=== PATIENT | female | born 1970 ===

== ENCOUNTER 2024-12-29 06:00 | Day surgery (SDC) | payer OTHER ==
[2024-12-24 13:51] VITALS: BP 123/73
[~2024-12-29] VITALS: Ht 162.6 cm; Wt 55.3 kg
[2024-12-29] MEDS ORDERED: DIBUCAINE 30 GM TUBE RECTAL SCH (08:00)
[2024-12-29] MEDS ORDERED: CEFTRIAXONE SODIUM 2,000 MG VIAL IV SCH (08:00)
[2024-12-29] MEDS ORDERED: LIDOCAINE HCL 1%/EPINEPHRINE 10 ML VIAL IJ SCH (08:00)
[2024-12-29] MEDS ORDERED: BUPIVACAINE HCL/PF 0.25% 30ML VIAL InF SCH (08:00)
[2024-12-29] MEDS ORDERED: HEMOSTATIC MATRIX 1 KIT KIT TOP SCH (08:00)
[2024-12-29] MEDS ORDERED: METRONIDAZOLE/SODIUM CHLORIDE 500 MG/100 ML PIGGYBACK IV SCH (08:00)
[2024-12-29] MEDS ORDERED: PERCOCET 5-3251 EACH PO (08:29)
[2024-12-29] MEDS ORDERED: RECTICARE30 GM TOP (08:29)
[2024-12-29] MEDS ORDERED: MORPHINE SULFATE 4 MG/ML VIAL IV ONE (09:40)
== END 2024-12-29 12:40 | disposition home or self-care (01) ==
LOC: CIR.AMB 06:00
PROVIDERS: ATTEND Surgery
DX: K64.2 Third degree hemorrhoids (principal); K64.3 Fourth degree hemorrhoids; K62.5 Hemorrhage of anus and rectum; K60.1 Chronic anal fissure; Z88.6 Allergy status to analgesic agent